=== PATIENT | male | born 1980 | race Caucasian/White ===

== ENCOUNTER 2016-11-12 20:00 | Emergency (ER) | payer BC ==
[2016-11-12 20:35] VITALS: BP 128/85
[2016-11-12] MEDS ORDERED: Amoxicillin PO (*) 500 MG CAP PO ONE ×2 (21:04→21:05)
--- NOTE | 2016-11-12 21:13 | UC ---
Palpitation/Dysrhythmia HP - HPI Summary HPI Summary: pt had sore throat approx 1 week ago, seemed to get better, now notes occasional palpitations and chest tightness. was here earlier and she has swab positive strep. No fever. No cough. - History of Current Complaint Chief Complaint: UCRespiratory Stated Complaint: SORE THROAT Time Seen by Provider: 11/12/16 20:50 Hx Obtained From: Patient Onset/Duration: Gradual Onset, Lasting Days, Still Present Severity Initially: Moderate Severity Currently: Moderate Pain Intensity: 0 Pain Scale Used: 0-10 Numeric Character: Skipped Beats Aggravating Factor(s): Caffeine Alleviating Factor(s): Nothing Associated Signs & Symptoms: Positive: Chest Pain - tightness - Risk Factors Cardiac: Negative Pulmonary Embolism: Negative Atrial Fibrillation: Negative - Allergy/Home Medications Allergies/Adverse Reactions: Allergies Allergy/AdvReac Type Severity Reaction Status Date / Time No Known Allergies Allergy Verified 11/12/16 20:35 Home Medications: Home Medications Multivitamins/Minerals TAB* [Thera M Plus TAB*] 1 tab PO DAILY 11/12/16 [ History Confirmed 11/12/16] PMH/Surg Hx/FS Hx/Imm Hx Previously Healthy: Yes - Surgical History Surgical History: None - Family History Known Family History: Negative: Cardiac Disease - parents alive and well, no heart disease - Social History Occupation: Employed Full-time Lives: With Family Alcohol Use: None Substance Use Type: None Smoking Status (MU): Never Smoked Tobacco Review of Systems Constitutional: Fever - resolved Skin: Negative Eyes: Negative ENT: Sore Throat Respiratory: Negative Cardiovascular: Palpitations Gastrointestinal: Negative Genitourinary: Negative Motor: Negative Neurovascular: Negative Musculoskeletal: Negative Neurological: Negative Psychological: Negative All Other Systems Reviewed And Are Negative: Yes Physical Exam Triage Information Reviewed: Yes Appearance: Well-Nourished, Ill-Appearing, Pain Distress - mild Vital Signs: Initial Vital Signs Temp 97.5 F 11/12/16 20:31 Pulse 62 11/12/16 20:31 Resp 14 11/12/16 20:31 BP 128/85 11/12/16 20:31 Pulse Ox 98 11/12/16 20:31 Vital Signs Reviewed: Yes Eyes: Positive: Conjunctiva Clear ENT: Positive: Pharyngeal erythema, TMs normal, Tonsillar swelling Neck: Positive: Supple, Nontender, Enlarged Nodes @ - ant cervical Respiratory: Positive: Lungs clear, Normal breath sounds, No respiratory distress Cardiovascular: Positive: RRR, No Murmur, Pulses Normal Musculoskeletal: Positive: Strength Intact, ROM Intact Neurological: Positive: Alert, Muscle Tone Normal Psychological Exam: Normal Skin Exam: Normal Palpitations Course/Dx - Course Course Of Treatment: EKG SR, nl AVIVCT, left axis -22, no acute changes, no ectopy. - Differential Dx/Diagnosis Provider Diagnoses: strep pharyngitis. palpitations Discharge - Discharge Plan Condition: Stable Disposition: HOME Prescriptions: Amoxicillin (*) 875 mg PO BID #20 tab Patient Education Materials: Strep Throat (ED), Palpitations (ED) Referrals: Justino Driscoll MD [Medical Doctor] - 1 Week Additional Instructions: You EKG did not show the cause of palpitations. Your strep test was positive. Return to urgent care if new or worsening symptoms.
== END 2016-11-12 21:31 | disposition home or self-care (01) ==
LOC: UCCORT 20:00
DX: R00.2 Palpitations (principal); J02.0 Streptococcal pharyngitis
CPT/HCPCS: 87651; 93005; 99212; A9270-GY; G0463

== ENCOUNTER 2018-04-29 17:49 | Emergency (ER) | payer BC ==
[2018-04-29 18:00] VITALS: BP 137/95
--- NOTE | 2018-04-29 18:55 | UC ---
Alan Aranda Rebecca, scribed for Roya Glez MD on 04/29/18 at 1834 . Upper Extremity HPI - HPI Summary HPI Summary: Pt is a 38 y/o M who presents to [facility] c/o R wrist pain. 4 days ago he was playing softball when he dove and landed on the R wrist, taking the weight of the fall on the wrist. He continued playing after the fall and did not feel pain until the following day. On triage, pain is moderate, ranked 4/10. Took 400 mg Ibuprofen 2 days ago which alleviated sx. Additionally notes R elbow "discomfort" that began today. Denies shoulder pain, numbness, or tingling. The pain is not affecting his daily activities and presents today as the pain is not improving. 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 - History of Current Complaint Chief Complaint: UCUpperExtremity Stated Complaint: WRIST INJURY Time Seen by Provider: 04/29/18 18:16 Hx Obtained From: Patient Onset/Duration: Lasting Days - 3 days, Still Present Severity Currently: Moderate Pain Intensity: 4 Pain Scale Used: 0-10 Numeric Location Of Pain: Is Discrete @ - R wrist Aggravating Factor(s): Nothing Alleviating Factor(s): OTC Meds - Ibuprofen Associated Signs And Symptoms: Positive: Other - R elbow discomfort. Negative: Numbness/Tingling Related History: Dominant Hand Right - Allergies/Home Medications Allergies/Adverse Reactions: Allergies Allergy/AdvReac Type Severity Reaction Status Date / Time No Known Allergies Allergy Verified 04/29/18 18:00 PMH/Surg Hx/FS Hx/Imm Hx - Additional Past Medical History Additional PMH: Negative PMHx: DM, HTN - Surgical History Surgical History: None - Family History Known Family History: Negative: Cardiac Disease - parents alive and well, no heart disease, Hypertension, Diabetes - Social History Occupation: Employed Full-time - Working on computers Alcohol Use: Weekly Substance Use Type: None Smoking Status (MU): Never Smoked Tobacco Review of Systems Constitutional: Negative Skin: Negative Eyes: Negative ENT: Negative Respiratory: Negative Cardiovascular: Negative Gastrointestinal: Negative Genitourinary: Negative Motor: Negative Neurovascular: Negative Musculoskeletal: Arthralgia - R wrist pain, R elbow "discomfort" Neurological: Negative Psychological: Negative All Other Systems Reviewed And Are Negative: Yes - Comments Additional Review of Systems Comments: NEGATIVE: Shoulder pain, numbness, tingling Physical Exam Vital Signs: Initial Vital Signs Temp 97.7 F 04/29/18 17:54 Pulse 54 04/29/18 17:54 Resp 16 04/29/18 17:54 BP 137/95 04/29/18 17:54 Pulse Ox 97 04/29/18 17:54 Diagnostics - Radiology Wrist XR Xray Interpretation: No Acute Changes - Normal radiograph of the right wrist. If the patient's symptoms persist, follow-up imaging is recommended. Physician reviewed this report. Radiology Interpretation Completed By: Radiologist Upper Extremity Course/Dx - Course Course Of Treatment: Patient medications and allergies reviewed. Discharge - Sign-Out/Discharge Documenting (check all that apply): Discharge/Admit/Transfer - Discharge - Discharge Plan Condition: Stable Disposition: HOME Patient Education Materials: Wrist Sprain (ED) Referrals: Justino Driscoll MD [Primary Care Provider] - [facility] [Provider Group] Additional Instructions: - Wear splint for comfort and support as much as possible for the next 4-5 days - Alternate ibuprofen (Motrin, Advil) and Tylenol every 3 hours for pain - Apply ice (wrapped in a towel) 20 minutes at a time for pain and swelling - Contacted sports management group tomorrow to schedule follow-up appointment. He should be reevaluated early next week - Please note that the radiologist has not yet looked at your x-ray imaging. If the radiologist sees a fracture or different finding not discussed with you at today's visit, you will receive a phone call from a care team cdl driver. The documentation as recorded by the Alan coy Rebecca accurately reflects the service I personally performed and the decisions made by me, Roya Glez MD.
--- NOTE | 2018-04-29 19:26 | RAD ---
INDICATION: Distal radial side right wrist pain after a fall 4 days earlier COMPARISON: None. TECHNIQUE: 3 views right wrist. REPORT: The visualized bones are properly aligned and well corticated. The joint spaces are normal.There is no fracture, dislocation or other focal osseous abnormality. IMPRESSION: Normal radiograph of the right wrist. If the patient's symptoms persist, follow-up imaging is recommended.
== END 2018-04-29 19:03 | disposition home or self-care (01) ==
LOC: UCEAST 17:49
DX: M25.531 Pain in right wrist (principal); M25.521 Pain in right elbow
CPT/HCPCS: 99211; G0463